=== PATIENT | male | born 1935 | race Two or more races ===

== ENCOUNTER 2018-05-21 14:46 | Inpatient (IN) | payer MEDICARE, OTHER, MEDICAID ==
[2018-05-21 16:01] LABS: ADD MAN DIFF? NO
[2018-05-21 16:06] LABS: WHITE BLOOD COUNT 13.4 10^3/ul (4.8-10.8)
[2018-05-21 16:06] LABS: BASOPHILS % 0.2 % (0.0-2.0); EOSINOPHILS # 0.1 10^3/ul (0.0-0.5); EOSINOPHILS % 0.4 % (0.0-7.0); HEMATOCRIT 40.4 % (42.0-52.0); HEMOGLOBIN 13.2 g/dl (14.0-18.0); LYMPHOCYTES # 1.2 10^3/ul (0.8-2.9); LYMPHOCYTES % 8.9 % (15.0-51.0); MEAN CORPUSCULAR HEMOGLOBIN 28.1 pg (29.0-33.0); MEAN CORPUSCULAR HGB CONC 32.7 g/dl (32.0-37.0); MEAN CORPUSCULAR VOLUME 86.1 fl (82.0-101.0); MEAN PLATELET VOLUME 9.3 fl (7.4-10.4); MONOCYTE # 1.3 10^3/ul (0.3-0.9); MONOCYTES % 9.3 % (0.0-11.0); NEUTROPHIL # 10.8 10^3/ul (1.6-7.5); NEUTROPHILS % 80.5 % (39.0-77.0); PLATELET COUNT 272 10^3/UL (140-415); RED BLOOD COUNT 4.69 10^6/ul (4.70-6.10); RED CELL DISTRIBUTION WIDTH 15.8 % (11.5-14.5)
[2018-05-21 16:26] LABS: ALANINE AMINOTRANSFERASE 22 IU/L (13-69); ALBUMIN 3.9 g/dl (3.3-4.9); ALBUMIN/GLOBULIN RATIO 1.25; ALKALINE PHOSPHATASE 60 IU/L (42-121); ANION GAP 16 (8-16); ASPARTATE AMINO TRANSFERASE 18 IU/L (15-46); BILIRUBIN,INDIRECT 0.9 mg/dl (0-1.1); BILIRUBIN,TOTAL 0.9 mg/dl (0.2-1.3); BLOOD UREA NITROGEN 18 mg/dl (7-20); CALCIUM 8.9 mg/dl (8.4-10.2); CARBON DIOXIDE 32 mmol/L (21-31); CHLORIDE 99 mmol/L (97-110); CREATININE 0.91 mg/dl (0.61-1.24); GLUCOSE 117 mg/dl (70-220); LIPASE 48 U/L (23-300); POTASSIUM 3.7 mmol/L (3.5-5.1); SODIUM 143 mmol/L (135-144)
[2018-05-21 16:36] LABS: TROPONIN-I < 0.012 ng/ml (0.000-0.120)
[2018-05-21] MEDS: ONDANSETRON 4 MG INJ IV (16:45)
[2018-05-21] MEDS: KETOROLAC 30 MG INJ IV (16:45)
[2018-05-21] MEDS: CEFTRIAXONE 1 GM/50 ML (PMX) 50 ML IVPB (16:45)
[2018-05-21] MEDS: ACETAMINOPHEN 325 MG TAB PO (16:45)
[2018-05-21 17:08] LABS: LACTIC ACID 1.1 mmol/L (0.5-2.0)
[2018-05-21] MEDS: HYDROCODONE/APAP (10/325) TAB PO (18:08)
[2018-05-21] MEDS ORDERED: ONDANSETRON 4 MG INJ IV (18:30)
[2018-05-21] MEDS ORDERED: ACETAMINOPHEN 325 MG TAB PO (18:30)
[2018-05-21] MEDS ORDERED: GLUCOSE GEL 15 GRAM TUBE PO ×2 (20:00)
[2018-05-21] MEDS ORDERED: GLUCOSE GEL 15 GRAM TUBE BUCCAL (20:00)
[2018-05-21] MEDS ORDERED: DEXTROSE 50% 50 ML SYRINGE IV ×2 (20:00)
[2018-05-21] MEDS ORDERED: GLUCAGON 1 MG INJ IM (20:00)
[2018-05-21 20:01] LABS: LACTIC ACID 1.2 mmol/L (0.5-2.0)
[2018-05-21] MEDS: PIPER-TAZO 3.375 GM IV (PMX) 100 ML IVPB (20:29)
[2018-05-21] MEDS: INSULIN ASPART [NOVOLOG] 3 ML PEN SC (21:00)
[2018-05-21] MEDS: DEXTROSE 5%-0.45% NACL 1,000 ML IV (22:31)
[2018-05-21 23:47] LABS: LACTIC ACID 1.7 mmol/L (0.5-2.0)
[2018-05-22] MEDS: ACCU-CHEK XX (02:00)
[2018-05-22 06:16] LABS: ADD UMIC NO; UR ASCORBIC ACID NEGATIVE (NEGATIVE); UR BILIRUBIN (Dip) NEGATIVE (NEGATIVE); UR BLOOD (Dip) NEGATIVE (NEGATIVE); UR CLARITY CLEAR (CLEAR); UR COLOR YELLOW (YELLOW); UR GLUCOSE (Dip) NEGATIVE (NEGATIVE); UR KETONES (Dip) NEGATIVE (NEGATIVE); UR LEUKOCYTE ESTERASE (Dip) NEGATIVE Leu/ul (NEGATIVE); UR NITRITE (Dip) NEGATIVE (NEGATIVE); UR SPECIFIC GRAVITY (Dip) 1.011 (1.003-1.030); UR TOTAL PROTEIN (Dip) NEGATIVE (NEGATIVE); UR UROBILINOGEN (Dip) NEGATIVE (NEGATIVE)
[2018-05-22 06:50] LABS: ADD MAN DIFF? NO
[2018-05-22 07:01] LABS: BASOPHILS % 0.3 % (0.0-2.0); EOSINOPHILS # 0.1 10^3/ul (0.0-0.5); EOSINOPHILS % 0.6 % (0.0-7.0); HEMATOCRIT 34.5 % (42.0-52.0); LYMPHOCYTES # 1.7 10^3/ul (0.8-2.9); LYMPHOCYTES % 15.2 % (15.0-51.0); MEAN CORPUSCULAR HEMOGLOBIN 27.1 pg (29.0-33.0); MEAN CORPUSCULAR HGB CONC 31.9 g/dl (32.0-37.0); MEAN PLATELET VOLUME 9.7 fl (7.4-10.4); MONOCYTE # 1.3 10^3/ul (0.3-0.9); MONOCYTES % 11.8 % (0.0-11.0); NEUTROPHIL # 7.9 10^3/ul (1.6-7.5); NEUTROPHILS % 71.6 % (39.0-77.0); PLATELET COUNT 251 10^3/UL (140-415); RED BLOOD COUNT 4.06 10^6/ul (4.70-6.10); RED CELL DISTRIBUTION WIDTH 15.9 % (11.5-14.5)
[2018-05-22 07:01] LABS: WHITE BLOOD COUNT 11.1 10^3/ul (4.8-10.8)
[2018-05-22] MEDS: PIPER-TAZO 3.375 GM IV (PMX) 100 ML IVPB ×3 (07:45→22:05)
[2018-05-22 07:49] LABS: ANION GAP 11 (8-16); BLOOD UREA NITROGEN 23 mg/dl (7-20); CALCIUM 8.5 mg/dl (8.4-10.2); CARBON DIOXIDE 33 mmol/L (21-31); CHLORIDE 100 mmol/L (97-110); GLUCOSE 159 mg/dl (70-220); PHOSPHORUS 3.8 mg/dl (2.5-4.9); POTASSIUM 3.8 mmol/L (3.5-5.1); SODIUM 140 mmol/L (135-144)
[2018-05-22] MEDS: INSULIN ASPART [NOVOLOG] 3 ML PEN SC ×4 (08:00→20:14)
[2018-05-22] MEDS ORDERED: ALBUTEROL/IPRATROPIUM (NEB) 3 ML AMP HHN (09:00)
[2018-05-22] MEDS ORDERED: BUPIVACAINE 0.25% (MPF) 30 ML INJ (09:38)
[2018-05-22] MEDS ORDERED: LIDOCAINE 1%/EPI 30 ML INJ (09:38)
[2018-05-22] MEDS ORDERED: GLYCOPYRROLATE 0.4 MG INJ (09:56)
[2018-05-22] MEDS ORDERED: ROCURONIUM 50 MG INJ (09:56)
[2018-05-22] MEDS ORDERED: PROPOFOL 20 ML (09:57)
[2018-05-22] MEDS ORDERED: CEFAZOLIN 1 GM INJ (09:57)
[2018-05-22] MEDS ORDERED: NEOSTIGMINE 3 MG/3 ML SYRINGE (09:57)
[2018-05-22] MEDS ORDERED: ONDANSETRON 4 MG INJ (09:57)
[2018-05-22] MEDS ORDERED: FENTAnyl 50 MCG/ML VIAL (09:57)
[2018-05-22] MEDS ORDERED: MIDAZOLAM 1 MG/ML 2 ML INJ (09:57)
[2018-05-22] MEDS ORDERED: DEXAMETHASONE 4 MG/ML 1 ML INJ (09:57)
[2018-05-22] MEDS ORDERED: ROPIVACAINE 0.5 % 30 ML VIAL (09:59)
[2018-05-22] MEDS ORDERED: DIPHENHYDRAMINE 50 MG INJ IV (10:00)
[2018-05-22] MEDS ORDERED: ALBUTEROL 0.083% (NEB) 2.5 MG/3 ML AMP HHN (10:00)
[2018-05-22] MEDS ORDERED: MIDAZOLAM 1 MG/ML 2 ML INJ IV (10:00)
[2018-05-22] MEDS ORDERED: OXYCODONE/ACETAMINOPHEN (5/325) TAB PO ×2 (10:00)
[2018-05-22] MEDS ORDERED: HYDROmorphONE 1 MG/5 ML IV SYRINGE IV ×3 (10:00)
[2018-05-22] MEDS ORDERED: LABETALOL HCL 20MG INJ IV (10:00)
[2018-05-22] MEDS ORDERED: ONDANSETRON 4 MG INJ IV (10:00)
[2018-05-22] MEDS ORDERED: MEPERIDINE 25 MG INJ IV (10:00)
[2018-05-22] MEDS ORDERED: FENTAnyl 50 MCG/ML VIAL IV ×3 (10:00)
[2018-05-22] MEDS ORDERED: EPHEDrine SULFATE 50 MG/5 ML SYG IV (10:00)
[2018-05-22] MEDS ORDERED: IPRATROPIUM (NEB) 0.5 MG/2.5 ML AMP HHN (10:00)
[2018-05-22] MEDS ORDERED: TRIMETHOBENZAMIDE 100 MG/ML VIAL IM (10:00)
[2018-05-22] MEDS: hydrALAzine 20 MG INJ IV (11:42)
[2018-05-22] MEDS ORDERED: HYDROCODONE/APAP (5/325) TAB PO (12:00)
[2018-05-22] MEDS: HYDROCODONE/APAP (5/325) TAB PO (13:10)
[2018-05-22] MEDS: DEXTROSE 5%-0.45% NACL 1,000 ML IV (13:40)
[2018-05-23] MEDS: ACCU-CHEK XX (02:41)
[2018-05-23] MEDS: PIPER-TAZO 3.375 GM IV (PMX) 100 ML IVPB (05:24)
[2018-05-23 06:22] LABS: ADD MAN DIFF? NO
[2018-05-23 06:28] LABS: WHITE BLOOD COUNT 7.9 10^3/ul (4.8-10.8)
[2018-05-23 06:28] LABS: BASOPHILS % 0.1 % (0.0-2.0); HEMATOCRIT 33.3 % (42.0-52.0); HEMOGLOBIN 10.6 g/dl (14.0-18.0); LYMPHOCYTES # 1.1 10^3/ul (0.8-2.9); LYMPHOCYTES % 13.4 % (15.0-51.0); MEAN CORPUSCULAR HEMOGLOBIN 27.2 pg (29.0-33.0); MEAN CORPUSCULAR HGB CONC 31.8 g/dl (32.0-37.0); MEAN CORPUSCULAR VOLUME 85.4 fl (82.0-101.0); MEAN PLATELET VOLUME 9.4 fl (7.4-10.4); MONOCYTE # 0.7 10^3/ul (0.3-0.9); MONOCYTES % 8.2 % (0.0-11.0); NEUTROPHIL # 6.2 10^3/ul (1.6-7.5); NEUTROPHILS % 77.5 % (39.0-77.0); PLATELET COUNT 243 10^3/UL (140-415); RED CELL DISTRIBUTION WIDTH 16.2 % (11.5-14.5)
[2018-05-23 07:15] LABS: ANION GAP 11 (8-16); BLOOD UREA NITROGEN 16 mg/dl (7-20); CALCIUM 8.4 mg/dl (8.4-10.2); CARBON DIOXIDE 31 mmol/L (21-31); CHLORIDE 104 mmol/L (97-110); CREATININE 0.71 mg/dl (0.61-1.24); GLUCOSE 187 mg/dl (70-220); PHOSPHORUS 3.3 mg/dl (2.5-4.9); POTASSIUM 3.8 mmol/L (3.5-5.1); SODIUM 142 mmol/L (135-144)
[2018-05-23] MEDS: INSULIN ASPART [NOVOLOG] 3 ML PEN SC ×2 (07:50→12:00)
[2018-05-23] MEDS ORDERED: ALBUTEROL 4 MG PO (09:00)
[2018-05-23] MEDS: HYDROCODONE/APAP (5/325) TAB PO (12:20)
[2018-05-23] MEDS: TAMSULOSIN (SR) 0.4 MG CAP PO (12:20)
[2018-05-23] MEDS: RANOLAZINE (SR) 500 MG TAB PO (12:20)
[2018-05-23] MEDS: PANTOPRAZOLE (EC) 40 MG TAB PO (12:20)
[2018-05-23] MEDS: predniSONE 5 MG TAB PO (12:20)
== END 2018-05-23 14:30 | disposition home health service (06) | DRG 343 ==
LOC: E/R 14:46 → 2NE 18:23
PROC: 0DTJ4ZZ Resection of Appendix, Percutaneous Endoscopic Approach (ICD-10-PCS; principal; 2018-05-22 09:30)
DX: K35.80 Unspecified acute appendicitis (principal); E11.9 Type 2 diabetes mellitus without complications; E78.5 Hyperlipidemia, unspecified; E66.01 Morbid (severe) obesity due to excess calories; F41.9 Anxiety disorder, unspecified; I25.10 Atherosclerotic heart disease of native coronary artery without angina pectoris; I10 Essential (primary) hypertension; I25.2 Old myocardial infarction; J44.9 Chronic obstructive pulmonary disease, unspecified; K21.9 Gastro-esophageal reflux disease without esophagitis; N40.0 Benign prostatic hyperplasia without lower urinary tract symptoms; Z68.33 Body mass index [BMI] 33.0-33.9, adult; Z98.61 Coronary angioplasty status; Z87.891 Personal history of nicotine dependence; Z79.84 Long term (current) use of oral hypoglycemic drugs; Z79.82 Long term (current) use of aspirin
CPT/HCPCS: 36415; 71045; 74176; 80048; 80053; 81003; 82962; 83605; 83690; 83735; 84100; 84484; 85025; 87040; 87086; 88304; 93005; 93306; 96374; 96375; 99291-25